=== PATIENT | male | born 1980 | race Caucasian/White ===

== ENCOUNTER 2016-07-19 13:44 | Emergency (ER) | payer SELFPAY ==
[~2016-07-19] VITALS: Wt 81.0 kg
[2016-07-19] MEDS ORDERED: AMOX1TAB9 PO (14:12)
[2016-07-19] MEDS ORDERED: NPH10OT BOTH EARS (14:13)
[2016-07-19] MEDS ORDERED: AMO500 PO (14:14)
--- NOTE | 2016-08-09 17:03 | ERD ---
ER Documentation Chief Complaint Date/Time DATE: 07/19/16 TIME: 17:01 Chief Complaint RIGHT EAR PAIN HPI This is a 36-year-old male presenting to the emergency department complaining of right ear pain for the past couple days, patient rates the pain moderate in severity and constant. Patient denies any associated fevers. He does admit to having discharge in his right ear. He denies any tinnitus. He does admit to having some mild hearing loss ROS All systems reviewed and are negative except as per history of present illness. Medications Home Meds Active Scripts Amoxicillin* (Amoxicillin*) 500 Mg Cap, 500 MG PO BID for 10 Days, CAP Prov:CY HOPE PA-C 07/19/16 Neomycin/Polymyxin/Hydrocort* (Cortisporin* Otic) 10 Ml Susp, 4 DROP BOTH EARS QID for 7 Days, EA Prov:CY HOPE PA-C 07/19/16 PMhx/Soc Medical and Surgical Hx: pt denies Medical Hx, pt denies Surgical Hx Hx Alcohol Use: No Hx Substance Use: No Hx Tobacco Use: No Smoking Status: Never smoker Physical Exam Physical Exam GENERAL: WD/WN, in no apparent distress, non-toxic appearing HENT: NC/AT, right tympanic membrane was obscured with discharge from the ear canal EYES: Conjunctiva normal NECK: Supple. No meningeal signs PULM: Clear to auscultation bilaterally. Normal labored breathing CV: Regular rate and rhythm, no murmurs GI: Soft, non tender, non distended. Normal bowel sounds BACK: No masses EXT: No clubbing, cyanosis, or edema. NEURO: Awake and Alert SKIN: No petechiae or rashes PSYCH: Normal mood Procedures/MDM This is a 36-year-old male presenting to emergency room complaining of right ear pain which is likely due to otitis externa. No evidence of myringitis, mastoiditis, cholesteatoma. hemodynamically stable. Prescription for Amoxicillin and Cortisporin was given to patient. Discussed to return to the ED for worsening condition or not improving as expected. Patient's guardian agreed and understood with this plan Departure Diagnosis: Primary Impression: Otitis externa Condition: Stable Patient Instructions: External Ear Infection (Adult) Additional Instructions: Visite a rima bryson para un EXAMEN.Regrese a estas instalaciones si no se mejora michele esperbamos o michele le dijimos. [place] toda la medicina audra y michele se le indic. Regrese a estas instalaciones si no se mejora michele esperbamos o michele le dijimos. CY HOPE PA-C Aug 09, 2016 17:03
== END 2016-07-19 16:15 | disposition home or self-care (01) ==
LOC: FTE 13:44
DX: H60.91 Unspecified otitis externa, right ear (principal)
CPT/HCPCS: 99283